=== PATIENT | female | born 2000 | race Caucasian/White ===

== ENCOUNTER 2023-11-04 02:05 | Emergency (ER) | payer SELFPAY ==
[~2023-11-04] VITALS: Ht 172.7 cm; Wt 86.9 kg
[2023-11-04 02:07] VITALS: TEMP 98
[2023-11-04] MEDS ORDERED: NS 1,000 ML IV ONE (02:30)
[2023-11-04 02:34] LABS: BASO # 0.1 K/mm3 (0.0-0.2); BASO % 0.7 % (0.0-2.0); EOS # 0.2 K/mm3 (0.0-0.7); EOS % 2.2 % (0.0-4.0); GRAN # 4.4 K/mm3 (1.4-6.5); GRAN % 49.2 % (42.2-75.2); LYMPH # 3.5 K/mm3 (1.2-3.4); LYMPH % 38.6 % (20.0-51.0); MEAN CELL VOLUME 91 fl (80.0-100.0); MEAN CORPUSCULAR HEMOGLOBIN 31 pg (27-31); MEAN CORPUSCULAR HGB CONC 34 g/dl (33.0-37.0); MEAN PLATELET VOLUME 8.6 fl (7.4-10.4); MONO # 0.8 K/mm3 (0.1-0.6); MONO % 9.1 % (1.7-9.3); PLATELET COUNT 246 K/mm3 (130-400); RED BLOOD COUNT 3.52 M/mm3 (4.10-5.30)
[2023-11-04 02:46] LABS: ALBUMIN 3.3 g/dL (3.5-5.0); BILIRUBIN,TOTAL 0.3 mg/dL (0.2-1.2); CALCIUM 7.8 mg/dL (8.4-10.2); CREATININE, serum 0.69 mg/dL (0.57-1.11); TOTAL PROTEIN 6.1 g/dl (6.2-8.1)
[2023-11-04] MEDS ORDERED: NS 50 ML IV SCH (03:28)
[2023-11-04] MEDS ORDERED: Iohexol 300 - 100 ML VIAL IV ONE (03:28)
[2023-11-04] MEDS ORDERED: levETIRAcetam 1,000 MG in Syringe 1 EACH IV ONE (04:15)
[2023-11-04] MEDS ORDERED: Ondansetron 4 MG/2 ML VIAL IV ONE (04:15)
[2023-11-04 04:27] VITALS: BP 99/53; PULSE 92
== END 2023-11-04 04:38 | disposition short-term general hospital (02) ==
LOC: COL.ER 02:05
PROVIDERS: Emergency Medicine
DX: S06.6XAA Traumatic subarachnoid hemorrhage with loss of consciousness status unknown, initial encounter (principal); S02.121A Fracture of orbital roof, right side, initial encounter for closed fracture; S06.5XAA Traumatic subdural hemorrhage with loss of consciousness status unknown, initial encounter; F10.129 Alcohol abuse with intoxication, unspecified; X58.XXXA Exposure to other specified factors, initial encounter; Y90.8 Blood alcohol level of 240 mg/100 ml or more
CPT/HCPCS: J1953; J2405; J7030; Q9967